=== PATIENT | female | born 1945 | race American Indian/Alaskan Native ===

== ENCOUNTER 2020-06-24 09:53 | Observation (INO) | payer MEDICARE ==
--- NOTE | 2020-06-24 11:22 | Anesthesia Consultation ---
Anesthesia Consult and Med Hx Date of service: 06/24/20 - Airway Anesthetic Teeth Evaluation: Dentures (upper and lower) ROM Head & Neck: Adequate Mental/Hyoid Distance: Adequate Mallampati Class: Class II Intubation Access Assessment: Probably Good - Pre-Operative Health Status ASA Pre-Surgery Classification: ASA3 Proposed Anesthetic Plan: MAC - Pulmonary Hx Smoking: (quit 1987) Hx Sleep Apnea: (snores) - Cardiovascular System Hx Hypertension: Yes Hx Coronary Artery Disease: Yes (CABG 1998) Hx Percutaneous Transluminal Coronary Angioplasty (PTCA): (cabg) Hx Pacemaker: Yes (sss, from 2008) Hx Peripheral Vascular Disease: Yes - Central Nervous System CVA: (TIA) Hx Psychiatric Problems: Yes (dementia)
--- NOTE | 2020-06-24 11:25 | Anesthesia Day of Surgery ---
Anesthesia Day of Surgery - Day of Surgery Patient Examined: Yes Patient H&P Reviewed: Yes Patient is NPO: Yes Beta Blockers: Yes (metoprolol 25mg PO)
[2020-06-24 12:04] LABS: Basophils # (Auto) 0.1 K/mm3 (0.0-0.1); Basophils % (Auto) 1.3 % (0.0-1.8); Eosinophils # (Auto) 0.1 K/mm3 (0.0-0.4); Eosinophils % (Auto) 1.6 % (0.0-4.3); Hemoglobin 10.7 gm/dl (10.1-14.3); Lymphocytes # (Auto) 1.7 K/mm3 (1.2-5.4); Lymphocytes % (Auto) 26.3 % (13.4-35.0); Mean Corpuscular HGB Conc 33 % (30-34); Mean Corpuscular Volume 87 fl (79-97); Monocytes # (Auto) 0.6 K/mm3 (0.0-0.8); Monocytes % (Auto) 8.8 % (0.0-7.3); Platelet Count 380 K/mm3 (140-440); Red Cell Distribution Width 17.8 % (13.2-15.2)
[2020-06-24 12:15] LABS: INR 1.23 (0.87-1.13); Partial Thromboplastin Time 28.3 Sec. (24.2-36.6)
[2020-06-24] MEDS ORDERED: SODIUM CHLORIDE IRRI 1000 ML 1,000 ML, .VANCOMYCIN VIAL 1,000 MG IR ONE (12:30)
[2020-06-24] MEDS ORDERED: SODIUM CHLORIDE 0.9% 1000 ML 1,000 ML ONE (12:31)
[2020-06-24 12:33] LABS: Calcium 9.2 mg/dL (8.4-10.2)
[2020-06-24] MEDS ORDERED: propofoL 200 MG/20 ML VIAL IV ONE ×3 (12:58)
[2020-06-24] MEDS ORDERED: LIDOCAINE MPF (2%) 20 MG/1 ML VIAL 5 ML ONE (12:59)
[2020-06-24] MEDS ORDERED: SODIUM CHLORIDE IRRI 500 ML 500 ML IR ONE ×2 (13:05→16:33)
[2020-06-24] MEDS ORDERED: ceFAZolin/Water 2 GM/20 ML 2 GM/20 ML SYRINGE IV ONE (13:05)
[2020-06-24] MEDS ORDERED: HYDROmorphone 1 MG/1 ML INJ ONE (13:12)
[2020-06-24] MEDS: BUPIVACAINE/PF (0.5%) 5 MG/1 ML 30 ML VIAL INFILTRATI ONE ×2 (14:23→16:19)
[2020-06-24] MEDS: LIDOCAINE (1%) 10 MG/1 ML VIAL 20 ML MDV ONE ×2 (14:26→16:19)
[2020-06-24] MEDS ORDERED: .VANCOMYCIN VIAL 1,000 MG in SODIUM CHLORIDE IRRI 1000 ML 1,000 ML IRRIGATION ONE (15:47)
[2020-06-24] MEDS ORDERED: VANCOMYCIN/NS 1 GM/250 ML 1 GM/250 ML BAG IV ONE (16:04)
[2020-06-24] MEDS ORDERED: ACETAMINOPHEN 325 MG TAB PO PRN (17:01)
--- NOTE | 2020-06-24 18:06 | Post Anesthesia Evaluation ---
- Post Anesthesia Evaluation Patient Participated: Yes Airway Patent: Yes Stable Respiratory Function: Yes Nausea/Vomiting: No Temp > 96.8F: Yes Pain Manageable: Yes Adequeate Hydration: Yes Anesthesia Complications: No
--- NOTE | 2020-06-24 18:29 | XRay Report ---
CHEST 1 VIEW INDICATION: Pacemaker Postop. COMPARISON: None. FINDINGS: Support devices: Cardiac leads project in expected position. Heart: Enlarged. Lungs/Pleura: Bilateral pulmonary opacities are suggestive of pulmonary edema. No significant effusio n, no pneumothorax. IMPRESSION: 1. Cardiac leads project in expected position. 2. Probable pulmonary edema. Signer Name: Westley Klein MD Signed: 06/24/2020 6:24 PM Workstation Name: [id number]
[2020-06-24] MEDS ORDERED: hydrALAZINE 20 MG/1 ML INJ IV ONE (19:00)
[2020-06-24] MEDS: hydrALAZINE 25 MG TAB PO SCH (20:46)
[2020-06-24] MEDS: ceFAZolin/NS 1 GM/50 ML 1 GM/50 ML BAG IV SCH (21:25)
[2020-06-24] MEDS ORDERED: DONEPEZIL 5 MG TAB PO SCH (22:00)
[2020-06-24] MEDS ORDERED: PRAVASTATIN 20 MG TAB PO SCH (22:00)
[2020-06-24] MEDS ORDERED: HYDROcodone/ACETAMINOPHEN 5-325 MG TAB PO PRN (22:25)
[2020-06-24] MEDS: METOPROLOL TARTRATE 25 MG TAB PO SCH (22:53)
[2020-06-24] MEDS: QUEtiapine 25 MG TAB PO SCH (22:53)
[2020-06-25] MEDS: hydrALAZINE 25 MG TAB PO SCH (02:05)
[2020-06-25] MEDS: ceFAZolin/NS 1 GM/50 ML 1 GM/50 ML BAG IV SCH (04:48)
[2020-06-25] MEDS: FUROSEMIDE 40 MG TAB PO SCH ×2 (05:19→05:21)
[2020-06-25 07:41] LABS: Calcium 8.6 mg/dL (8.4-10.2)
--- NOTE | 2020-06-25 09:43 | Short Stay Summary ---
Short Stay Documentation Date of service: 06/25/20 - History H&P: obtained from office - Allergies and Medications Current Medications: Allergies No Known Allergies Allergy (Unverified 01/28/13 07:18) Home Medications Medication Instructions Recorded Confirmed Last Taken Type Aspirin EC [Halfprin EC] 81 mg PO DAILY 02/27/13 06/24/20 06/23/20 History 81 mg Hydralazine HCl [hydrALAZINE] 25 mg PO TID 02/27/13 06/24/20 06/23/20 History 25 mg Isosorbide Mononitrate [Isosorbide 20 mg PO BID 02/27/13 06/24/20 06/23/20 History Mononitrate ER] 20 mg Metoprolol [Lopressor TAB] 25 mg PO BID 02/27/13 06/24/20 06/24/20 11:37 History 25 mg Simvastatin 10 mg PO QDAY 02/27/13 06/24/20 06/23/20 History 20 mg Ergocalciferol (Vitamin D2) 50,000 unit PO DAILY 06/24/20 06/24/20 06/23/20 History [Vitamin D2] 1 tab Furosemide [Lasix] 40 mg PO DAILY 06/24/20 06/24/20 06/23/20 History 40 mg QUEtiapine [SEROquel] 100 mg PO QDAY 06/24/20 06/24/20 06/23/20 History 100 mg donepeziL [Aricept] 5 mg PO QDAY 06/24/20 06/24/20 06/23/20 History 5 mg Active Medications Acetaminophen (Acetaminophen 325 Mg Tab) 650 mg PO Q4H PRN PRN Reason: Mild pain (1-3) Hydrocodone Bitart/Acetaminophen (Hydrocodone/Acetaminophen 5-325 Mg Tab) 1 each PO Q6H PRN PRN Reason: Pain, Moderate (4-6) Last Admin: 06/24/20 22:29 Dose: 1 each Documented by: Aspirin (Aspirin Ec 81 Mg Tab) 81 mg PO QDAY [facility] Donepezil HCl (Donepezil 5 Mg Tab) 5 mg PO QHS [facility] Last Admin: 06/24/20 22:52 Dose: 5 mg Documented by: Furosemide (Furosemide 40 Mg Tab) 40 mg PO DAILY@0600 [facility] Last Admin: 06/25/20 05:21 Dose: Not Given Documented by: Hydralazine HCl (Hydralazine 25 Mg Tab) 25 mg PO Q8H [facility] Last Admin: 06/25/20 02:05 Dose: Not Given Documented by: Isosorbide Mononitrate (Isosorbide Mononitrate 20 Mg Tab) 20 mg PO BID [facility] Last Admin: 06/24/20 22:52 Dose: 20 mg Documented by: Metoprolol Tartrate (Metoprolol Tartrate 25 Mg Tab) 25 mg PO BID [facility] Last Admin: 06/24/20 22:53 Dose: 25 mg Documented by: Pravastatin Sodium (Pravastatin 20 Mg Tab) 10 mg PO QHS [facility] Last Admin: 06/24/20 22:53 Dose: 10 mg Documented by: Quetiapine Fumarate (Quetiapine 25 Mg Tab) 50 mg PO BID [facility] Last Admin: 06/24/20 22:53 Dose: 50 mg Documented by: - Physical exam General appearance: no acute distress, other (dementia) Integumentary: no rash, no growths, no abnormal pigmentation, other (right pectoralis PPM implantation site pressure dressing removed, site covered with telfa and tegaderm dressing, site c/d/i with no bleeding or hematoma noted) Lungs: Clear to auscultation Heart: Regular rate, Normal S1, Normal S2 Gastrointestinal: normal Extremities: no ischemia, pulses intact, pulses symmetrical Neurological: Normal gait - Brief post op/procedure progress note Date of procedure: 06/24/20 Pre-op diagnosis: SSS Post-op diagnosis: same Procedure: PPM implantation - see dictated operative report Estimated blood loss: none Condition: stable - Hospital course Hospital course: Pt presented for scheduled elective PPM replacement and subsequently successfully underwent procedure - see dictated operative report. She was admitted overnight for observation. She has remained clinically stable throughout admission and is medically stable for discharge home today. Post- procedure CXR with NAF. Device interrogation this AM showed normal device functi on. - Disposition Condition at discharge: Good Disposition: [id number] TO HOME OR SELFCARE - Discharge Diagnoses (1) SSS (sick sinus syndrome) Status: Chronic (2) Cardiac pacemaker in situ Status: Chronic (3) CAD (coronary artery disease) Status: Chronic (4) History of coronary artery bypass graft Status: Chronic (5) PAD (peripheral artery disease) Status: Chronic (6) History of CVA (cerebrovascular accident) Status: Chronic (7) HTN (hypertension) Status: Chronic (8) Dementia Status: Chronic Short Stay Discharge Plan Activity: other (as per discharge instructions) Diet: low fat, low cholesterol, low salt, diabetic Wound: other (as per discharge instructions ) Follow up with: KRISTEN COLÓN MD [Primary Care Provider] - 7 Days BLAIR JOSÉ MD [Staff Physician] - 7 Days (Post-op device clinic, [facility], 07/08/2020 @ 9:30AM)
[2020-06-25] MEDS: QUEtiapine 25 MG TAB PO SCH (09:50)
[2020-06-25] MEDS: METOPROLOL TARTRATE 25 MG TAB PO SCH (09:50)
[2020-06-25] MEDS ORDERED: ASPIRIN EC 81 MG TAB PO SCH (10:00)
[2020-06-25 12:19] VITALS: BP 103/55
== END 2020-06-25 14:01 | disposition home or self-care (01) ==
LOC: CATHLABREC 09:53 → 4A 17:01
PROVIDERS: ADMIT Internal Medicine Cardiovascular Disease; ATTEND Internal Medicine Cardiovascular Disease
DX: I49.5 Sick sinus syndrome (principal); T82.110A Breakdown (mechanical) of cardiac electrode, initial encounter; I42.8 Other cardiomyopathies; I25.10 Atherosclerotic heart disease of native coronary artery without angina pectoris; I10 Essential (primary) hypertension; I73.9 Peripheral vascular disease, unspecified; F02.80 Dementia in other diseases classified elsewhere, unspecified severity, without behavioral disturbance, psychotic disturbance, mood disturbance, and anxiety; Z86.73 Personal history of transient ischemic attack (TIA), and cerebral infarction without residual deficits; Z45.010 Encounter for checking and testing of cardiac pacemaker pulse generator [battery]; Z95.1 Presence of aortocoronary bypass graft; Z79.82 Long term (current) use of aspirin; Z79.899 Other long term (current) drug therapy; Z95.810 Presence of automatic (implantable) cardiac defibrillator; Z98.891 History of uterine scar from previous surgery; Z98.51 Tubal ligation status
CPT/HCPCS: 33208; 33233; 36415; 71045; 80048; 83735; 85025; 85610; 85730; 93005; 96365; 96366; 96367; 96375; A9270; C1785; C1898; G0378; J0360; J0690; J1170; J2704; J3370; J7030; Q9967